=== PATIENT | male | born 1985 | race Caucasian/White ===

== ENCOUNTER 2020-11-17 22:39 | Emergency (ER) | payer BC ==
[2020-11-17 22:56] VITALS: BP 140/86; PULSE 98
--- NOTE | 2020-11-18 00:05 | EDM.PDOC ---
ED HPI GENERAL MEDICAL PROBLEM - General Chief Complaint: Lower Extremity Injury/Pain Stated Complaint: knee pain moving up leg Time Seen by Provider: 11/17/20 23:41 Source of Information: Reports: Patient History Limitations: Reports: No Limitations - History of Present Illness INITIAL COMMENTS - FREE TEXT/NARRATIVE: Patient arrived to the ED via private vehicle Describes pre-existing venous varicosities medial aspect of left distal thigh and proximal calf Over past 4-5 days has developed increasing pain at the site with increased prominence of the venous varicosities There is also visible erythema overlying the area Denies pain or swelling distally in the extremity Denies chest pain or shortness of breath or fever Denies acute trauma or injury to the area He has not had occurrence of similar symptoms in the past Pain severity is mild to moderate, not associated with significant ambulatory or other functional limitation Left Lower Leg Pain Score (Numeric/FACES): 5 - Related Data Allergies Allergy/AdvReac Type Severity Reaction Status Date / Time No Known Allergies Allergy Verified 11/17/20 22:55 Home Meds: Home Meds . [No Known Home Meds] 07/22/16 [History] Past Medical History - Past Health History Medical/Surgical History: Denies Medical/Surgical History - Past Surgical History Musculoskeletal Surgical History: Reports: Other (See Below) Other Musculoskeletal Surgeries/Procedures:: knee surgery Social & Family History - Tobacco Use Tobacco Use Status *Q: Current Every Day Tobacco User Years of Tobacco use: 5 Packs/Tins Daily: 0.5 - Caffeine Use Caffeine Use: Reports: None - Recreational Drug Use Recreational Drug Use: No Review of Systems - Review of Systems Review Of Systems: See Below Constitutional: Denies: Fever Respiratory: Denies: Shortness of Breath Cardiovascular: Denies: Chest Pain Skin: Reports: Erythema Neurological: Denies: Difficulty Walking, Weakness ED EXAM, GENERAL - Physical Exam Exam: See Below Free Text/Narrative:: Constitutional - awake; alert; no acute distress Head - no facial swelling or weakness ENT - no nasal deformity; no epistaxis; normal phonation Respiratory - normal respiratory effort; no crackles or wheezing; no stridor Cardiovascular - regular rhythm; normal rate; S1; S2; grade 1/6 systolic murmur Musculoskeletal - grossly normal strength and motion; no gross swelling or deformity - left lower extremity: tortuous venous varicosities distal medial left thigh, and proximal medial left leg; mild overlying erythema and tenderness to palpation; mild, nodular, thrombosis palpable; no distal leg edema; no posterior calf tenderness Skin - warm; dry Neurologic - normal speech; no weakness; gait intact Psychiatric - normal mood and affect; memory and attention normal Course - Vital Signs Text/Narrative:: . Considered etiologies included: Venous varicosities, erythema, cellulitis, phlebitis, superficial thrombophlebitis, DVT Symptoms and examination were discussed Analgesic treatment was declined Ultrasound evaluation was obtained for further investigation, and was negative for DVT Symptomatic treatment was reviewed Primary care follow-up was advised Patient was felt to be stable for outpatient follow-up Return precautions were provided Last Recorded V/S: Last Vital Signs Temp 36.9 C 11/17/20 22:53 Pulse 98 11/17/20 22:53 Resp 16 11/17/20 22:53 BP 140/86 11/17/20 22:53 Pulse Ox 96 11/17/20 22:53 - Orders/Labs/Meds Orders: Active Orders 24 hr Category Date Time Status VL Duplex Lwr Ext Veins Ltd Lt [US] Stat Exams 11/18/20 00:26 Taken - Radiology Interpretation Free Text/Narrative:: Ultrasound duplex left lower extremity veins, limited, preliminary radiology report: 1. No evidence of deep venous thrombosis 2. Superficial thrombophlebitis in the left distal thigh and proximal calf Departure - Departure Time of Disposition: 02:26 Disposition: Home, Self-Care 01 Condition: Good Clinical Impression: Superficial thrombophlebitis of lower extremity Qualifiers: Laterality: left Qualified Code(s): I80.02 - Phlebitis and thrombophlebitis of superficial vessels of left lower extremity - Discharge Information Instructions: Thrombophlebitis Referrals: PCP,Not In Area [Primary Care Provider] - Forms: ED Department Discharge Additional Instructions: Return if condition worsens May resume general activity and regular diet as tolerated May take IBUPROFEN 600 mg every 6 hours as needed for pain/inflammation Follow-up with primary care provider is recommended in 5 to 7 days Sepsis Event Note (ED) - Evaluation Sepsis Screening Result: No Definite Risk - Focused Exam Vital Signs: Vital Signs Temp Pulse Resp BP Pulse Ox 11/17/20 22:53 36.9 C 98 16 140/86 96 - My Orders Last 24 Hours: My Active Orders 11/18/20 00:26 VL Duplex Lwr Ext Veins Ltd Lt [US] Stat - Assessment/Plan Last 24 Hours: My Active Orders 11/18/20 00:26 VL Duplex Lwr Ext Veins Ltd Lt [US] Stat
--- NOTE | 2020-11-19 09:15 | US ---
Left lower extremity deep venous ultrasound: Duplex and color Doppler evaluation was obtained of the left common femoral, proximal greater saphenous, superficial femoral, popliteal, posterior tibial and peroneal veins. Right common femoral vein was also evaluated. Comparison: No prior venous imaging is available. Findings: Varicosity is seen within the posterior left calf which shows evidence of thrombus. Deep vein show normal phasic flow, augmentation and compression. Impression: 1. Superficial thrombophlebitis within a varicosity in the posterior calf. 2. No findings of deep venous thrombosis are seen within the left lower extremity or right common femoral vein. Diagnostic code #3 I agree with preliminary report from [facility], finalized on 11/18/20, 2:48 AM CDT, code 1
== END 2020-11-18 02:36 | disposition home or self-care (01) ==
LOC: JD.ED 22:39
DX: I80.02 Phlebitis and thrombophlebitis of superficial vessels of left lower extremity (principal); Z72.0 Tobacco use
CPT/HCPCS: 93971-26-LT; 93971-LT; 99283-25